=== PATIENT | female | born 1940 | race Caucasian/White ===

== ENCOUNTER 2019-08-31 10:13 | Outpatient (CLI) | payer MEDICARE, OTHER ==
--- NOTE | 2019-09-03 08:42 | DEXA Report ---
Reason: POST MENOPAUSAL Procedure Date: 08/31/2019 Accession Number: [id number] / [id number] Procedure: DEX - Dexa Spine and/or Hip CPT Code: Final Report FULL RESULT: EXAM: Dexa Spine and/or Hip DATE: 08/31/2019 10:46 AM CLINICAL HISTORY: POST MENOPAUSAL TECHNIQUE: Dual energy x-ray absorptiometry (DXA) was performed on a VOZ System. Regions measured are the AP Spine, femoral neck, and if needed forearm. COMPARISON: None. In accordance with the International Society for Clinical Densitometry (ISCD) guidelines, data from previous exams may be reanalyzed using current recommendations and techniques. This is done to allow a more accurate basis for comparison with the current study. FINDINGS: The data for the lumbar spine is as follows: BMD (g/cm/cm) T-SCORE Z-SCORE REGION L1 1.182 0.4 2.3 L2 1.311 0.9 2.8 L3 1.449 2.1 3.9 L4 1.595 3.3 5.1 TOTAL 1.409 1.9 3.7 NOTE: All evaluable vertebrae are used for classification The data for the hip is as follows: BMD (g/cm/cm) T-SCORE Z-SCORE REGION Neck 0.720 -2.3 -0.2 TOTAL 0.796 -1.7 0.2 NOTE: The femoral neck or total proximal femur, whichever is lowest, is used for classification. IMPRESSION: THE WHO CLASSIFICATION BASED ON THE INTERNATIONAL REFERENCE STANDARD IS OSTEOPENIA. THE FRACTURE RISK IS INCREASED. RECOMMENDATION: Patients with diagnosis of osteoporosis or osteopenia should have regular bone mineral density assessment. For those eligible for Medicare, routine testing is allowed once every 2 years. Testing frequency can be increased for patients who have rapidly progressing disease or for those who are receiving medical therapy to restore bone mass. COMMENT: World Health Organization (WHO) definitions for osteoporosis and osteopenia: NORMAL BMD: T-score at -1.0 or higher, fracture risk is low OSTEOPENIA BMD: T-score between -1.0 and -2.5, fracture risk is increased. OSTEOPOROSIS BMD: T-score at -2.5 or lower, fracture risk is high. National Osteoporosis Foundation recommends: 1. Obtain adequate dietary calcium (at least 1200 mg per day) and vitamin D (400-800 international units per day). 2. Participate, as appropriate, in regular weightbearing and muscle-strengthening exercise. 3. Avoid tobacco use and reduce alcohol and caffeine intake. 4. For more detailed information see the website at www.NOF.org.
== END 2019-08-31 10:14 | disposition home or self-care (01) ==
LOC: DI 10:13
PROVIDERS: ATTEND Family Medicine
DX: Z13.820 Encounter for screening for osteoporosis (principal); M85.88 Other specified disorders of bone density and structure, other site; Z78.0 Asymptomatic menopausal state
CPT/HCPCS: 77080

== ENCOUNTER 2020-06-12 14:47 | Outpatient (CLI) | payer MEDICARE, OTHER ==
--- NOTE | 2020-06-12 17:10 | XRAY Report ---
PROCEDURE: Lumbar Spine w/Flex/Ext INDICATIONS: S/O LUMBAR SPINE SURGERY TECHNIQUE: 3 views of the lumbar spine acquired. COMPARISON: None. FINDINGS: Bones: Postsurgical changes compatible with right L4-L5 laminotomy. 5 dtx-[id number]-[id number] vertebrae are present. There is mild L4-L5 anterolisthesis secondary to facet hypertrophy. Mild convex left curvat ure of the thoracolumbar spine. No vertebral body compression fractures. No suspicious bony lesions. Moderate L2-L3, L3-L4 and L4-L5 degenerative disease. Mild L1-L2 and L5-S1 degenerative disc diseas e. Moderate L2-L3, L3-L4, L4-L5 and L5-S1 facet arthropathy. Soft tissues: Overlying bowel gas pattern is normal. No suspicious soft tissue calcifications. Flexion/extension: There is normal range of motion, with preserved normal alignment. IMPRESSION: 1. Multilevel degenerative disease. 2. Multilevel facet arthropathy. 3. Mild L4-L5 degenerative spondylolisthesis which is stable and the flexed and extended positions. 4. No fracture. No acute osseous lesion. If there is continued clinical concern for pathology, then M RI should be considered for further evaluation. 5. Postsurgical changes. Reviewed by: Natasha Arriaza MD, PhD on 06/12/2020 5:09 PM PDT Approved by: Natasha Arriaza MD, PhD on 06/12/2020 5:09 PM PDT Station ID: [id number]
== END 2020-06-12 14:48 | disposition home or self-care (01) ==
LOC: DI.S 14:47
PROVIDERS: ATTEND Neurological Surgery
DX: M51.36 Other intervertebral disc degeneration, lumbar region (principal); M43.16 Spondylolisthesis, lumbar region; Z98.890 Other specified postprocedural states
CPT/HCPCS: 72114

== ENCOUNTER 2020-07-05 09:50 | Outpatient (CLI) | payer MEDICARE, OTHER ==
[2020-07-05] MEDS ORDERED: GADOBUTROL 7.5 MMOL/7.5 ML VIAL ONE (10:45)
[2020-07-05] MEDS ORDERED: GADOBUTROL 7.5 MMOL/7.5 ML VIAL IVP ONE (11:16)
--- NOTE | 2020-07-05 14:05 | CT Report ---
PROCEDURE: LUMBAR SPINE WO INDICATIONS: SPINAL STENOSIS OF LUMBAR REGION, SURGICAL F U TECHNIQUE: Noncontrast 3 mm thick sections acquired from the T12 level to the sacrum. Sagittal and coronal refo rmats were constructed. For radiation dose reduction, the following was used: automated exposure co ntrol, adjustment of mA and/or kV according to patient size. COMPARISON: Correlation is made with the accompanying lumbar spine MRI as well as prior lumbar plain films, 06/12/2020 FINDINGS: Image quality: Excellent. Bones: No acute vertebral body compression fractures. No suspicious lytic or blastic bony lesions. Central spinal caliber is of normal overall caliber. No pars defects. Mild levoconvex scoliotic curvature is seen. T12-L1: Normal in appearance. L1-L2: Normal in appearance. L2-L3: Moderate loss of disc height is seen. Moderate disc bulge is seen. There is at least modera te right-sided and mild left-sided facet hypertrophy seen. There is moderate left-sided and moderate to severe right-sided neuroforaminal narrowing seen. At least moderate central canal narrowing is see n. L3-L4: Moderate loss of disc height is seen on the right side. Moderate disc bulge is seen, which is eccentric to the right. There is moderate to severe right-sided and moderate left-sided neuroforamin al narrowing seen. Moderate to severe central canal narrowing is seen. L4-L5: Moderate to severe loss of disc height is seen on the left side. Endplate irregularity and s clerosis can be seen. Vacuum disc phenomenon is seen at this level. Posteriorly directed endplate osteophytes are seen. Moderate to prominent facet hypertrophy is seen. Postoperative changes are se en, with removal of portions of the posterior elements. Moderate to severe bilateral neuroforaminal n arrowing is seen, right worse than left. No significant central canal narrowing is seen. L5-S1: The disc height is well-preserved. Mild disc bulge is seen. Mild to moderate facet hypertrop hy is seen. Moderate bilateral neural foraminal narrowing is seen. Mild central canal narrowing is seen. Soft tissues: No retroperitoneal masses or hematomas. Visualized aorta is normal in caliber. A sig moid colon anastomotic staple line is seen. IMPRESSION: Postoperative changes at L4-L5, with removal of portions of the posterior elements. Multiple levels of degenerative change are seen, which are overall worst at the L3-L4 level. Incidental note is made of: Sigmoid colon anastomotic staple line Reviewed by: Jackson Garland MD on 07/05/2020 1:04 PM [facility] Approved by: Jackson Garland MD on 07/05/2020 1:04 PM [facility] Station ID: [id number]
--- NOTE | 2020-07-07 11:38 | MRI Report ---
PROCEDURE: Lumbar Spine W/WO INDICATIONS: SPINAL STENOSIS OF LUMBAR REGION, SURGICAL F U CONTRAST: IV CONTRAST: Gadavist ml: 6 TECHNIQUE: Noncontrast sagittal T1 spin echo and T2 fast spin echo, sagittal STIR, axial T1 and T2 fast spin ech o through the lumbar spine. In cases with scoliosis, additional coronal T2 fast spin echo may be per formed. After the administration of contrast, sagittal and axial T1 spin echo with fat saturation th rough the lumbar spine. COMPARISON: Correlation is made with the accompanying lumbar spine CT, 07/05/2020. Correlation is al so made with lumbar plain films, 06/12/2020. FINDINGS: Image quality: Diagnostic, with note made of motion artifact. Alignment and curvature: There is normal bony alignment. Marrow: Marrow is of normal overall signal. No acute vertebral body compression fractures. No susp icious marrow enhancement. Spinal cord: Conus medullaris terminates at the L1 level. Visualized spinal cord demonstrates jeanna l signal, without suspicious enhancement. Paraspinous soft tissues: Postoperative changes are seen posteriorly, which are centered at the L4-L 5 level. There is an expected amount of postoperative edema and enhancement. Superficial to the theca l sac, there is a focal fluid collection seen that measures 2 x 1.4 x 1.4 cm. This is a degree of enh ancement of this lesion can be seen. No paravertebral masses are seen. T12-L1: Normal in appearance. L1-L2: Normal in appearance. L2-L3: Moderate loss of disc height and signal are seen. Mild to moderate disc bulge is seen. Mod erate facet hypertrophy is seen. Associated hypertrophy of the ligamentum flavum can be seen. There is moderate right-sided and mild left-sided neuroforaminal narrowing seen. Mild central canal narro wing is seen. L3-L4: Mild to moderate loss of disc height and disc signal can be seen. Moderate disc bulge is see n, which is eccentric to the right. At least moderate facet hypertrophy is seen. Associated hypertrop hy of the ligamentum flavum can be seen. There is at least moderate left-sided and moderate to sever e right-sided neuroforaminal narrowing seen. There is a mild degree of compression seen upon the exit ing right L3 nerve root. At least moderate central canal narrowing is seen, as on series 701 image 21 . L4-L5: Moderate to severe loss of disc height and disc signal can be seen. Reactive marrow endplat e changes are seen, which are hyperintense on T1-weighted and T2-weighted imaging, without significan t increased STIR signal. These imaging findings are most consistent with fatty metaplasia (Modic type 2 change). Postoperative changes are seen at this level, with removal of portions of the posterior elements. Minimal dural fibrosis can be seen at this level. Moderate to severe bilateral neuroforami nal narrowing is seen at this level, left worse than right. Compression is seen upon the exiting nerv e roots. Mild to moderate central canal narrowing is seen. L5-S1: The disc height is well-preserved. The disc signal is relatively well preserved. Mild disc bulge is seen. Moderate facet hypertrophy is seen. There is at least moderate bilateral neuroforam inal narrowing seen. Mild central canal narrowing is seen. IMPRESSION: Postoperative changes are seen at L4-L5, with removal of portions of the posterior elements. There is a fluid collection seen superficial to the thecal sac, which has the appearance of a benign postoper ative seroma. Abscess is considered to be much less likely. Multiple levels of degenerative change are seen, including moderate to severe bilateral neuroforamina l narrowing at L4-L5, with associated exiting nerve root compression. L3-L4, there is at least moderate left-sided and moderate to severe right-sided neuroforaminal narrow ing, with associated nerve root compression on the right L3 exiting nerve root. At least moderate jaki tral canal narrowing is seen at this level. Reviewed by: Jackson Garland MD on 07/07/2020 10:36 AM [facility] Approved by: Jackson Garland MD on 07/07/2020 10:36 AM [facility] Station ID: [id number]
== END 2020-07-05 09:51 | disposition home or self-care (01) ==
LOC: DI 09:50
PROVIDERS: ATTEND Neurological Surgery
DX: M48.061 Spinal stenosis, lumbar region without neurogenic claudication (principal); M47.816 Spondylosis without myelopathy or radiculopathy, lumbar region
CPT/HCPCS: 72131; 72158; A9585

== ENCOUNTER 2020-07-25 16:57 | Outpatient (CLI) | payer MEDICARE, OTHER | END 2020-07-25 16:58 | disposition home or self-care (01) | LOC: COV 16:57 | PROVIDERS: ATTEND Family Medicine | DX: Z20.828 Contact with and (suspected) exposure to other viral communicable diseases (principal) ==

== ENCOUNTER 2021-02-17 07:48 | Outpatient (CLI) | payer MEDICARE, OTHER ==
[2021-02-17 15:11] LABS: BASOPHILS % (AUTO) 0.8 %; EOSINOPHILS # (AUTO) 0.1 10^3/uL (0.0-0.7); EOSINOPHILS % (AUTO) 2.5 %; HCT - HEMATOCRIT 42.6 % (37.0-47.0); HGB - HEMOGLOBIN 14.4 g/dL (12.0-16.0); LYMPHOCYTES # (AUTO) 1.7 10^3/uL (1.5-3.5); LYMPHOCYTES % (AUTO) 32.9 %; MEAN CORPUSCULAR HEMOGLOBIN 31.5 pg (27.0-31.0); MEAN CORPUSCULAR HGB CONC 33.8 g/dL (32.0-36.0); MEAN CORPUSCULAR VOLUME 93.2 fL (81.0-99.0); MEAN PLATELET VOLUME 10.1 fL (7.9-10.8); MONOCYTES # (AUTO) 0.4 10^3/uL (0.0-1.0); MONOCYTES % (AUTO) 6.6 %; NEUTROPHILS % (AUTO) 56.8 %; PLT - PLATELET COUNT 282 10^3/uL (130-450); RED BLOOD COUNT 4.57 10^6/uL (4.20-5.40); RED CELL DISTRIBUTION WIDTH 13.2 % (12.0-15.0); WHITE BLOOD COUNT 5.3 x10^3/uL (4.8-10.8)
[2021-02-17 15:33] LABS: ALBUMIN 4.1 g/dL (3.2-5.5); ALBUMIN/GLOBULIN RATIO 1.5 (1.0-2.2); ALKALINE PHOSPHATASE 55 IU/L (42-121); ALT ALANINE AMINOTRANSFERASE 17 IU/L (10-60); AST ASPARTATE AMINOTRANSFERASE 18 IU/L (10-42); BUN - BLOOD UREA NITROGEN 22 mg/dL (6-20); CALCIUM 9.4 mg/dL (8.5-10.3); CARBON DIOXIDE - CO2 24 mmol/L (21-32); CHLORIDE 106 mmol/L (101-111); CHOLESTEROL 256 mg/dL; CREATININE 0.8 mg/dL (0.4-1.0); CRP HIGH SENSITIVITY 0.5 mg/L; GFR - MDRD 69 (>89); GLUCOSE 101 mg/dL (70-100); HDL CHOLESTEROL 64 mg/dL; LDL CHOLESTEROL,CALCULATED 171 mg/dL; LDL/HDL RATIO 2.7 (<4.4); SODIUM 139 mmol/L (135-145); TOTAL PROTEIN 6.9 g/dL (6.7-8.2); TRIGLYCERIDES 106 mg/dL; VLDL CHOLESTEROL 21 mg/dL
[2021-02-17 15:43] LABS: THYROID STIMULATING HORMONE 0.17 uIU/mL (0.34-5.60)
[2021-02-17 15:44] LABS: FREE T3 3.82 pg/mL (2.5-3.9)
[2021-02-17 15:45] LABS: FREE T4 (FREE THYROXINE) 0.95 ng/dL (0.58-1.64)
[2021-02-17 15:49] LABS: FERRITIN 72.3 ng/mL (11.0-306.8)
[2021-02-17 20:06] LABS: ESTIMATED AVERAGE GLUCOSE 111 mg/dL (70-100); HEMOGLOBIN A1c% 5.5 % (4.27-6.07)
[2021-02-18 10:22] LABS: HOMOCYSTEINE 11.2 umol/L (<10.4)
== END 2021-02-17 07:49 | disposition home or self-care (01) ==
LOC: LAB.S 07:48
PROVIDERS: ATTEND Family Medicine
DX: E03.9 Hypothyroidism, unspecified (principal); E78.5 Hyperlipidemia, unspecified; R73.09 Other abnormal glucose; E55.9 Vitamin D deficiency, unspecified; R53.83 Other fatigue
CPT/HCPCS: 36415; 80053; 80061; 82306; 82626; 82728; 83036; 83090; 83721; 84439; 84443; 84480; 84481; 84482; 85025; 86141

== ENCOUNTER 2021-02-24 13:06 | Outpatient (CLI) | payer MEDICARE, OTHER ==
--- NOTE | 2021-03-02 13:44 | Mammography Report ---
BILATERAL DIGITAL SCREENING MAMMOGRAM 3D/2D WITH EXAGGERATED CC: 02/24/2021 CLINICAL: Routine screening. No prior exams were available for comparison. The tissue of both breasts is predominantly fatty. Reporting delay due to awaiting outside images for comparison. There is possible architectural distortion in the right breast middle depth inferior region seen on t he mediolateral oblique view only. There is a possible irregular asymmetry with an obscured and indistinct margin in the left breast at 7 o'clock middle depth. No other significant masses or calcifications are seen in either breast. IMPRESSION: INCOMPLETE: NEEDS ADDITIONAL IMAGING EVALUATION The possible architectural distortion in the right breast middle depth inferior region seen on the me diolateral oblique view only is indeterminate. Additional views with possible ultrasound are recomme nded. The possible irregular asymmetry in the left breast at 7 o'clock middle depth is indeterminate. Shai tional views with possible ultrasound are recommended. This exam was interpreted at Station ID: [id number]. NOTE: For mammograms, a report in lay terms will be sent to the patient. Approximately 15% of breast malignancies will not be visualized mammographically. In the management of a palpable breast mass, a negative mammogram must not discourage biopsy of a clinically suspicious lesion. Electronically Signed By: Daniel Watts M.D. jr/:03/02/2021 08:06:50 ACR BI-RADS Category 0: Incomplete 3340F PARENCHYMAL PATTERN: (F) - The breast(s) demonstrate(s) diffuse fatty replacement. BI-RADS CATEGORY: (0) - 0 Mammo and [place] [id number] Immediate follow-up LATERALITY: (B)
== END 2021-02-24 13:07 | disposition home or self-care (01) ==
LOC: DI.S 13:06
PROVIDERS: ATTEND Family Medicine
DX: Z12.31 Encounter for screening mammogram for malignant neoplasm of breast (principal); N64.89 Other specified disorders of breast

== ENCOUNTER 2021-05-19 12:39 | Outpatient (CLI) | payer MEDICARE, OTHER ==
--- NOTE | 2021-05-20 11:59 | Mammography Report ---
BILATERAL DIGITAL DIAGNOSTIC MAMMOGRAM 3D/2D: 05/19/2021 CLINICAL: Patient returns today to evaluate an asymmetry in the right breast. Patient returns today t o evaluate a focal asymmetry in the left breast. Comparison is made to exams dated: 02/02/2018 mammogram - [facility] and 02/02/2018 mammogram - [facility] The previously described possible architectural distortion in the right breast middle depth inferior region seen on the mediolateral oblique view only is no longer seen and is consistent with fibrogland ular tissue. This is not confirmed in today's additional views. The previously described possible irregular asymmetry with an obscured and indistinct margin and coar se calcifications in the left breast at 7 o'clock middle depth is not confirmed in additional views. It is less prominent and decreased in size. The calcifications are not noted within this asymmetry. Evaluation of these calcifications demonstrate grouped coarse, heterogeneous calfcifications. No other significant masses or calcifications are seen in either breast. IMPRESSION: INCOMPLETE: NEEDS ADDITIONAL IMAGING EVALUATION The possible irregular asymmetry in the left breast at 7 o'clock middle depth likely represents fibro glandular tissue but remains indeterminate. An ultrasound is recommended for further evaluation and is scheduled to immediately follow this examination. This exam was interpreted at Station ID: [id number]. NOTE: For mammograms, a report in lay terms will be sent to the patient. Approximately 15% of breast malignancies will not be visualized mammographically. In the management of a palpable breast mass, a negative mammogram must not discourage biopsy of a clinically suspicious lesion. Electronically Signed By: Luis Enrique Chen M.D. aty/:05/19/2021 14:12:01 ACR BI-RADS Category 0: Incomplete 3340F PARENCHYMAL PATTERN: (F) - The breast(s) demonstrate(s) diffuse fatty replacement. BI-RADS CATEGORY: (0) - 0 Ultrasound [id number] Immediate follow-up LATERALITY: (L)
--- NOTE | 2021-05-20 12:00 | Ultrasound Report ---
LIMITED ULTRASOUND OF LEFT BREAST: 05/19/2021 CLINICAL: Patient returns today to evaluate an asymmetry in the left breast. Comparison is made to exams dated: 05/19/2021 mammogram, 02/24/2021 mammogram - [facility], 02/02/2018 mammogram - [facility], and 02/02/2018 mammogram - [facility] Real-time ultrasound of the left breast 5-7 o'clock region was performed. Villaseñor scale images of the real-time examination were reviewed. No significant abnormalities were seen sonographically in the left breast. IMPRESSION: SUSPICIOUS OF MALIGNANCY There is no abnormality seen in the left breast to correspond with the mammography finding described as a possible asymmetry in the inferior left breast which likely represents normal fibroglandular tis harris. However, there are adjacent coarse, heterogeneous grouped calcifications which have increased in numb er and conspicuity and are at a low suspicion for malignancy. A stereotactic guided left breast biops y is recommended. Findings and recommendations were discussed with the patient by Dr. Watts during today's evaluation. This exam was interpreted at Station ID: [id number]. Electronically Signed By: Luis Enrique Chen M.D. aty/:05/19/2021 14:14:48 Ultrasound BI-RADS: 4a Low suspicion for malignancy BI-RADS CATEGORY: (4a) - Low Susp None [id number] Immediate follow-up LATERALITY: ()
== END 2021-05-19 12:40 | disposition home or self-care (01) ==
LOC: DI 12:39
PROVIDERS: ATTEND Family Medicine
DX: R92.8 Other abnormal and inconclusive findings on diagnostic imaging of breast (principal); R92.1 Mammographic calcification found on diagnostic imaging of breast

== ENCOUNTER 2021-06-02 08:04 | Outpatient (CLI) | payer MEDICARE, OTHER ==
[2021-06-02] MEDS ORDERED: BUFFERED LIDOCAINE 10 ML SYRINGE ONE (08:16)
[2021-06-02] MEDS ORDERED: LIDOCAINE MPF 1%-EPI 1:200000 30 ML VIAL ONE (08:17)
--- NOTE | 2021-06-05 09:30 | Mammography Report ---
DIGITAL TOMOGRAPHIC MAMMOGRAPHY GUIDED STEREOTACTIC GUIDED BIOPSY LEFT BREAST WITH MARKING DEVICE INS ERTED AND POST MAMMOGRAPHIC IMAGIN06/02/2021 CLINICAL: Left breast stereotactic biopsy. Correlation is made to exams dated: 05/19/2021 ultrasound, 05/19/2021 mammogram, 02/24/2021 mammogram - [facility], 02/02/2018 mammogram - , and 02/02/2018 cony mogram - [facility] A stereotactic guided biopsy was performed for the area of grouped calcifications located in the left breast at 7 o'clock middle depth. This was described on the previous mammography report. The skin was prepped in the usual manner. Local anesthetic was administered to the access site. A skin noemí was made in the breast. The abnormality was approached from the medial aspect using an upright digit al tomographic mammography unit. A 10 gauge biopsy needle was placed adjacent to the abnormality und er computer guidance and confirmatory stereotactic mammography images were obtained to document needl e placement. Once the needle was documented to be in the correct location, four specimens were obtai gene using Siemens upright tomosynthesis biopsy unit. A clip was inserted into the biopsy cavity. A sterile dressing was applied to the access site. Post procedure mammographic imaging demonstrates th e location device at the targeted area. The specimens were sent to the laboratory for pathological a nalysis. IMPRESSION: STEREOTACTIC GUIDED BIOPSY MALIGNANT Stereotactic guided biopsy of the area of grouped calcifications in the left breast at 7 o'clock midd le depth was successful. Pathology indicates malignant ductal carcinoma in situ (DCIS). Pathology r esults are concordant with imaging findings. A surgical/oncologic consultation is recommended. This exam was interpreted at Station ID: [id number]. Luis Enrique Chen M.D. aty/:06/04/2021 13:11:45 BI-RADS CATEGORY: () - Unspecified - other recall n/a LATERALITY: (B)
== END 2021-06-02 08:05 | disposition home or self-care (01) ==
LOC: DI 08:04
PROVIDERS: ATTEND Family Medicine
DX: D05.12 Intraductal carcinoma in situ of left breast (principal)
CPT/HCPCS: 19081

== ENCOUNTER 2021-06-23 13:56 | Outpatient (CLI) | payer MEDICARE, OTHER ==
--- NOTE | 2021-06-23 16:01 | XRAY Report ---
PROCEDURE: Lumbar Spine 2 View Bending INDICATIONS: POST LUMBAR LAMINECTOMY TECHNIQUE: 3 views of the lumbar spine acquired. COMPARISON: June 12, 2020. FINDINGS: L-SPINE: No acute displaced fracture. The vertebral body heights are maintained. Minimal grade 1 ante rolisthesis at L3-5, unchanged with flexion and extension The disc space heights are maintained. Fac et arthrosis, most prominent at L5-S1. The sacroiliac joints appear patent. SOFT TISSUES: No focal abnormality. IMPRESSION: 1.No acute osseous abnormality of the lumbar spine. Reviewed by: Marty Jacobs MD on 06/23/2021 4:00 PM PDT Approved by: Marty Jacobs MD on 06/23/2021 4:00 PM PDT Station ID: [id number]
== END 2021-06-23 13:57 | disposition home or self-care (01) ==
LOC: DI.S 13:56
PROVIDERS: ATTEND Neurological Surgery
DX: Z98.890 Other specified postprocedural states (principal)

== ENCOUNTER 2021-12-16 15:06 | Outpatient (CLI) | payer MEDICARE, OTHER | END 2021-12-16 15:07 | disposition home or self-care (01) | LOC: RT 15:06 | PROVIDERS: ATTEND Family Medicine | DX: Z01.810 Encounter for preprocedural cardiovascular examination (principal) | CPT/HCPCS: 93005 ==

== ENCOUNTER 2022-08-03 14:11 | Outpatient (CLI) | payer MEDICARE, OTHER ==
[2022-08-03 20:14] LABS: BASOPHILS # (AUTO) 0.1 10^3/uL (0.0-0.1); BASOPHILS % (AUTO) 0.7 %; EOSINOPHILS # (AUTO) 0.2 10^3/uL (0.0-0.7); EOSINOPHILS % (AUTO) 2.4 %; HCT - HEMATOCRIT 41.7 % (37.0-47.0); HGB - HEMOGLOBIN 13.9 g/dL (12.0-16.0); LYMPHOCYTES % (AUTO) 27.7 %; MEAN CORPUSCULAR HEMOGLOBIN 31.2 pg (27.0-31.0); MEAN CORPUSCULAR HGB CONC 33.3 g/dL (32.0-36.0); MEAN CORPUSCULAR VOLUME 93.5 fL (81.0-99.0); MONOCYTES # (AUTO) 0.4 10^3/uL (0.0-1.0); MONOCYTES % (AUTO) 5.8 %; NEUTROPHILS # (AUTO) 4.5 10^3/uL (1.5-6.6); NEUTROPHILS % (AUTO) 63.1 %; PLT - PLATELET COUNT 307 10^3/uL (130-450); RED BLOOD COUNT 4.46 10^6/uL (4.20-5.40); RED CELL DISTRIBUTION WIDTH 12.7 % (12.0-15.0); WHITE BLOOD COUNT 7.1 x10^3/uL (4.8-10.8)
[2022-08-03 20:36] LABS: ALBUMIN 3.8 g/dL (3.2-5.5); ALBUMIN/GLOBULIN RATIO 1.2 (1.0-2.2); BILIRUBIN,TOTAL 0.3 mg/dL (0.2-1.0); CALCIUM 9.2 mg/dL (8.5-10.3); CREATININE 0.8 mg/dL (0.4-1.0); CRP HIGH SENSITIVITY 0.7 mg/L; TOTAL PROTEIN 6.9 g/dL (6.7-8.2)
[2022-08-03 20:52] LABS: ESTIMATED AVERAGE GLUCOSE 108 mg/dL (70-100); HEMOGLOBIN A1c% 5.4 % (4.27-6.07)
[2022-08-03 20:54] LABS: THYROID STIMULATING HORMONE 0.32 uIU/mL (0.34-5.60)
[2022-08-03 20:56] LABS: FREE T3 2.7 pg/mL (2.5-3.9); FREE T4 (FREE THYROXINE) 0.88 ng/dL (0.58-1.64)
[2022-08-05 04:08] LABS: VITAMIN D 25-HYDROXY 31.3 ng/mL (30.0-100.0)
== END 2022-08-03 14:12 | disposition home or self-care (01) ==
LOC: LAB.S 14:11
PROVIDERS: ATTEND Family Medicine
DX: E78.5 Hyperlipidemia, unspecified (principal); R73.09 Other abnormal glucose; K29.00 Acute gastritis without bleeding; A04.8 Other specified bacterial intestinal infections; E03.9 Hypothyroidism, unspecified; E55.9 Vitamin D deficiency, unspecified; N95.1 Menopausal and female climacteric states
CPT/HCPCS: 36415; 80053; 82150; 82306; 82626; 83036; 83090; 83690; 84439; 84443; 84480; 84481; 84482; 85025; 86141

== ENCOUNTER 2022-08-09 08:17 | Outpatient (CLI) | payer MEDICARE, OTHER ==
--- NOTE | 2022-08-09 18:00 | Ultrasound Report ---
PROCEDURE: Abdomen Complete INDICATIONS: LUQ ABD PAIN TECHNIQUE: Real-time scanning was performed of the abdominal and retroperitoneal organs, with image documentatio n. COMPARISON: None. FINDINGS: Liver: Mild hepatic steatosis. No focal hepatic mass. Gallbladder: Tiny gallstones and sludge are present within the gallbladder. The gallbladder is normal ly distended without wall thickening or pericholecystic fluid. The auto body repairman reports a negative son ographic Araujo's sign. Biliary ducts: Nondilated. Pancreas: Visualized portions of the pancreas are sonographically normal. Spleen: Spleen is normal in size and homogeneous in echotexture. Kidneys: Normal. Aorta: Atherosclerosis without aneurysm Iliacs: Proximal common iliac arteries are normal in caliber at less than 2.5 cm. IVC: Intrahepatic inferior vena cava is patent. Miscellaneous: No free abdominal fluid. IMPRESSION: Mild hepatic steatosis. Cholelithiasis and small volume gallbladder sludge without findings of cholecystitis. Reviewed by: Daneil Watts MD on 08/09/2022 4:59 PM [facility] Approved by: Daniel Watts MD on 08/09/2022 4:59 PM [facility] Station ID: [id number]
== END 2022-08-09 08:18 | disposition home or self-care (01) ==
LOC: DI 08:17
PROVIDERS: ATTEND Family Medicine
DX: K76.0 Fatty (change of) liver, not elsewhere classified (principal); R10.12 Left upper quadrant pain

== ENCOUNTER 2022-11-09 15:42 | Outpatient (CLI) | payer MEDICARE, OTHER ==
--- NOTE | 2022-11-10 19:09 | XRAY Report ---
PROCEDURE: Lumbar Spine w/Flex/Ext INDICATIONS: SPINAL STENOSIS OF LUMBAR REGION TECHNIQUE: AP & Lateral views of the lumbar spine were acquired, followed by flexion & extension josue ding views of the lumbar spine. COMPARISON: None. FINDINGS: Bones: 5 goj-lsp-lslrrcg vertebrae are present. There is trace anterolisthesis of L4 on L5. Multile kareem degenerative disc and foraminal narrowing are present most severe at L2-3 and L5-S1.. No vertebr al body compression fractures. No suspicious bony lesions. Soft tissues: Overlying bowel gas pattern is normal. No suspicious soft tissue calcifications. Flexion/extension: There is normal range of motion, with preserved normal alignment. There is no d ynamic instability. IMPRESSION: Degenerative changes as above. Reviewed by: Janett Durán MD on 11/10/2022 7:08 PM PST Approved by: Janett Durán MD on 11/10/2022 7:08 PM PST Station ID: [id number]
== END 2022-11-09 15:43 | disposition home or self-care (01) ==
LOC: DI.S 15:42
PROVIDERS: ATTEND Nurse Practitioner Adult Health
DX: M48.061 Spinal stenosis, lumbar region without neurogenic claudication (principal); Z98.890 Other specified postprocedural states; M43.16 Spondylolisthesis, lumbar region; M47.816 Spondylosis without myelopathy or radiculopathy, lumbar region; M47.817 Spondylosis without myelopathy or radiculopathy, lumbosacral region

== ENCOUNTER 2022-11-18 12:37 | Outpatient (CLI) | payer MEDICARE, OTHER ==
[~2022-11-18 12:37] MED LIST: GADOBUTROL 7.5 MMOL/7.5 ML VIAL ONE
[2022-11-18] MEDS ORDERED: GADOBUTROL 7.5 MMOL/7.5 ML VIAL IVP ONE (13:34)
--- NOTE | 2022-11-18 21:36 | MRI Report ---
PROCEDURE: LUMBAR SPINE W/WO INDICATIONS: HX OF SPINAL SURGERY, INC PAIN, WEAKNESS CONTRAST: GADAVIST 6.1ML TECHNIQUE: Noncontrast sagittal T1 spin echo and T2 fast spin echo, sagittal STIR, axial T1 and T2 fast spin ech o through the lumbar spine. In cases with scoliosis, additional coronal T2 fast spin echo may be per formed. After the administration of contrast, sagittal and axial T1 spin echo with fat saturation th rough the lumbar spine. COMPARISON: Lumbar spine MRI with and without contrast dated 07/05/2020. FINDINGS: Image quality: Excellent. Alignment and curvature: Remote L4-L5 posterior laminotomy. Trace anterolisthesis of L4 on L5. Marrow: Marrow is of normal overall signal. No acute vertebral body compression fractures. No susp icious marrow enhancement. Spinal cord: Conus medullaris terminates at the L1-L2 level. Visualized spinal cord demonstrates no rmal signal, without suspicious enhancement. Paraspinous soft tissues: No paravertebral masses or abnormal enhancement. T12-L1: No canal stenosis. Bilateral facet hypertrophy. No foraminal stenosis. L1-L2: Bilateral mild facet hypertrophy. No canal stenosis or foraminal stenosis. L2-L3: Unchanged. Disc bulge. Facet hypertrophy. Mild canal stenosis. Moderate right foraminal adrian rowing with mild flattening deformity on the exiting right L2 nerve root. No significant left foramin al narrowing. L3-L4: Disc bulge. Facet hypertrophy. Slight interval progression of canal stenosis, moderate to se tori. Moderate right foraminal narrowing with mild flattening deformity on the exiting right L3 nerve root. Mild left foraminal narrowing. L4-L5: Stable findings. Posterior laminotomy. Facet hypertrophy. Unchanged central posterior disc p rotrusion. Prominent facet hypertrophy. Mild to moderate canal stenosis, stable. Moderate right royal inal narrowing with mild flattening deformity on the exiting right L4 nerve root. Moderate to severe left foraminal narrowing with a degree of left foraminal L4 nerve root impingement. L5-S1: Bilateral facet hypertrophy. No canal stenosis. Moderate right foraminal narrowing with a mi ld degree of right foraminal L5 nerve root impingement. Mild to moderate left foraminal narrowing IMPRESSION: 1. Remote posterior decompressive surgery at L4-L5. 2. Underlying multilevel facet arthropathy. 3. Slight interval progression of findings at L3-L4, or central canal stenosis is now moderate to sev ere. 4. Canal stenosis is mild at L2-L3 and mild to moderate at L4-L5. 5. Multilevel foraminal narrowing as described above, including moderate to severe left foraminal adrian rowing at L4-L5 and multilevel moderate foraminal narrowing. Reviewed by: Will Carrera MD on 11/18/2022 9:35 PM PDT Approved by: Will Carrera MD on 11/18/2022 9:35 PM PDT Station ID: [id number]
== END 2022-11-18 12:38 | disposition home or self-care (01) ==
LOC: DI 12:37
PROVIDERS: ATTEND Family Medicine
DX: R53.1 Weakness (principal); R20.2 Paresthesia of skin; M47.816 Spondylosis without myelopathy or radiculopathy, lumbar region; M48.061 Spinal stenosis, lumbar region without neurogenic claudication
CPT/HCPCS: 72158; A9585

== ENCOUNTER 2023-10-03 08:43 | Outpatient (CLI) | payer MEDICARE, OTHER ==
[2023-10-03 15:27] LABS: BASOPHILS % (AUTO) 0.9 %; EOSINOPHILS # (AUTO) 0.2 10^3/uL (0.0-0.7); EOSINOPHILS % (AUTO) 4.2 %; HCT - HEMATOCRIT 41.7 % (37.0-47.0); LYMPHOCYTES # (AUTO) 1.2 10^3/uL (1.5-3.5); LYMPHOCYTES % (AUTO) 27.4 %; MEAN CORPUSCULAR HEMOGLOBIN 31.3 pg (27.0-31.0); MEAN CORPUSCULAR HGB CONC 33.6 g/dL (32.0-36.0); MEAN CORPUSCULAR VOLUME 93.3 fL (81.0-99.0); MEAN PLATELET VOLUME 9.5 fL (7.9-10.8); MONOCYTES # (AUTO) 0.4 10^3/uL (0.0-1.0); NEUTROPHILS # (AUTO) 2.7 10^3/uL (1.5-6.6); NEUTROPHILS % (AUTO) 59.3 %; PLT - PLATELET COUNT 275 10^3/uL (130-450); RED BLOOD COUNT 4.47 10^6/uL (4.20-5.40); RED CELL DISTRIBUTION WIDTH 12.6 % (12.0-15.0); WHITE BLOOD COUNT 4.5 x10^3/uL (4.8-10.8)
[2023-10-03 16:51] LABS: THYROID STIMULATING HORMONE 0.28 uIU/mL (0.34-5.60)
[2023-10-03 16:58] LABS: FERRITIN 77.1 ng/mL (11.0-306.8)
[2023-10-03 17:26] LABS: ALBUMIN 3.9 g/dL (3.2-5.5); ALBUMIN/GLOBULIN RATIO 1.4 (1.0-2.2); BILIRUBIN,TOTAL 0.6 mg/dL (0.2-1.0); CREATININE 0.8 mg/dL (0.6-1.3); CRP HIGH SENSITIVITY 0.97 mg/L; TOTAL PROTEIN 6.7 g/dL (6.4-8.9)
[2023-10-03 21:18] LABS: ESTIMATED AVERAGE GLUCOSE 105 mg/dL (70-100); HEMOGLOBIN A1c% 5.3 % (4.27-6.07)
[2023-10-05 16:11] LABS: DEAMIDATED GLIADIN IGA 4 units (0-19); DEAMIDATED GLIADIN IGG 1 units (0-19); T-TRANSGLUTAMINASE (TTG) IGA <2 U/mL (0-3); T-TRANSGLUTAMINASE (TTG) IGG 3 U/mL (0-5)
== END 2023-10-03 08:44 | disposition home or self-care (01) ==
LOC: LAB.S 08:43
PROVIDERS: ATTEND Family Medicine
DX: E03.9 Hypothyroidism, unspecified (principal); R53.83 Other fatigue; R73.09 Other abnormal glucose; I45.10 Unspecified right bundle-branch block; R10.9 Unspecified abdominal pain; E55.9 Vitamin D deficiency, unspecified; D64.9 Anemia, unspecified; L65.9 Nonscarring hair loss, unspecified; A04.8 Other specified bacterial intestinal infections
CPT/HCPCS: 36415; 80053; 82306; 82626; 82728; 83036; 83090; 83516; 83540; 84439; 84443; 84466; 84480; 84481; 84482; 85025; 86141; 86364

== ENCOUNTER 2023-11-03 06:37 | Outpatient (CLI) | payer MEDICARE, OTHER ==
--- NOTE | 2023-11-03 15:54 | Ultrasound Report ---
PROCEDURE: Abdomen Complete INDICATIONS: LUQ ABD PAIN TECHNIQUE: Real-time scanning was performed of the abdominal and retroperitoneal organs, with image documentatio n. COMPARISON: Abdominal ultrasound on August 09, 2022. FINDINGS: Liver: Liver is normal in size and homogeneous in echotexture. Liver parenchyma is diffusely echogen ic. Gallbladder: Cholelithiasis and sludge. Normal wall thickness measuring 1.9 mm. No pericholecystic fl uid. Biliary ducts: Intrahepatic bile ducts are non-dilated. Extrahepatic bile duct caliber measures 5 m m. Normal is 6-7 mm or less in diameter, or 10 mm or less post-cholecystectomy. Pancreas: Pancreatic head appears sonographically normal. The body and tail are not well seen second tay to bowel gas. Spleen: Spleen is normal in size and homogeneous in echotexture. Kidneys: Kidneys are normal in size and echotexture. Right kidney measures 9.7 cm long; left kidney measures 8.8 cm long. No hydronephrosis or nephrolithiasis. No solid masses. No complex renal cyst ic lesions which require follow-up. Aorta: Visualized aorta is normal in caliber at less than 3 cm. Scattered atherosclerotic plaque. Iliacs: Proximal common iliac arteries are normal in caliber at less than 2.5 cm. IVC: Intrahepatic inferior vena cava is patent. Miscellaneous: No free abdominal fluid. IMPRESSION: 1.Liver parenchyma is diffusely echogenic which may be seen in the setting of parenchymal disease suc h as steatosis, similar to prior. 2.Cholelithiasis without acute cholecystitis. 3.Spleen is normal in size with normal sonographic appearance. Reviewed by: Tiff Michel MD on 11/03/2023 3:52 PM PST Approved by: Tiff Michel MD on 11/03/2023 3:52 PM PST Station ID: [id number]
== END 2023-11-03 06:38 | disposition home or self-care (01) ==
LOC: DI 06:37
PROVIDERS: ATTEND Internal Medicine Gastroenterology
DX: K80.20 Calculus of gallbladder without cholecystitis without obstruction (principal)

== ENCOUNTER 2024-02-24 14:18 | Outpatient (CLI) | payer MEDICARE, OTHER ==
--- NOTE | 2024-02-24 16:17 | DEXA Report ---
PROCEDURE: Dexa Spine and/or Hip INDICATIONS: POST MENOPAUSAL TECHNIQUE: Dual energy x-ray absorptiometry (DXA) was performed on a [employer] System. Regions measur ed are the AP Spine, femoral neck, and if needed forearm. COMPARISON: 08/31/2019 FINDINGS: Lumbar Spine (L1-L2): Bone Mineral Density: 1.236 g/cm/cm,T score: 0.6. There has been no statistically significant change in bone mineral density since the prior study. Left Femoral Neck: Bone Mineral Density: 0.709 g/cm/cm, T score: -2.4. Left Hip: Bone Mineral Density: 0.730 g/cm/cm,T score: -2.2. Since the most recent prior study, there has been a statistically significant decrease in bone mineral density by 8.3% (T score greater or equal to -1.0: NORMAL) (T score from -1.1 to -2.4: OSTEOPENIA) (T score less than or equal to -2.5 to: OSTEOPOROSIS) Impression: By WHO criteria, this patient has low bone density (osteopenia). No statistical interval change in bone mineral density of the lumbar spine. Interval statistical incr ease in bone mineral density of the hip. Patients with diagnosis of osteoporosis or osteopenia should have regular bone mineral density assess ment. For those eligible for Medicare, routine testing is allowed once every 2 years. Testing frequ ency can be increased for patients who have rapidly progressing disease or for those who are receivin g medical therapy to restore bone mass. Reviewed by: Will Carrera MD on 02/24/2024 4:15 PM PDT Approved by: Will Carrera MD on 02/24/2024 4:15 PM PDT Station ID: [id number]
== END 2024-02-24 14:19 | disposition home or self-care (01) ==
LOC: DI 14:18
PROVIDERS: ATTEND Family Medicine
DX: M85.89 Other specified disorders of bone density and structure, multiple sites (principal)

== ENCOUNTER 2024-04-05 11:52 | Outpatient (CLI) | payer MEDICARE, OTHER | END 2024-04-05 11:53 | disposition EMS.NT | LOC: EMS 11:52 | DX: S05.12XA Contusion of eyeball and orbital tissues, left eye, initial encounter (principal); V89.2XXA Person injured in unspecified motor-vehicle accident, traffic, initial encounter; Y93.89 Activity, other specified; Y92.411 Interstate highway as the place of occurrence of the external cause ==